=== PATIENT | female | born 1945 | race Caucasian/White ===

== ENCOUNTER 2024-12-11 12:12 | Emergency (ER) | payer OTHER, SELFPAY ==
[2024-12-11 13:50] VITALS: BP 143/70
--- NOTE | 2024-12-11 14:52 | ED.GENMED ---
History of Present Illness
General
Chief Complaint: Abdominal Symptoms
Source: patient
Exam Limitations: none
Time Seen by Provider: 12/11/24 13:58
Nursing documentation reviewed up to this point in time: agreed with
History of Present Illness
History of Present Illness:
Patient status post lower back surgery earlier this month @ [facility], i.e. laminectomy of sacrum, presents to ED secondary to inability of bowel movement despite having urge over the past 4 days. Patient spoke with surgeons office who recommended
patient try [id number] medications, which has not helped. Denies fever or chills. Denies nausea or vomiting. Denies previous history of constipation.
Past History
Past History
ED Past Medical History: COPD, GERD and Other (AAA being monitored)
Social History
Tobacco: Former smoker
Alcohol: Occasional
Drug: None
Personal: Partner
Living: with family
Family History
Family History: Other (no Significant)
Review of Systems
Review of Systems
Allergies reviewed?: Yes
All Other Systems: ROS reviewed and negative except as documented in HPI and ROS
Constitutional: Reports no symptoms; Denies fever
ABD/GI: Reports constipated; Denies abdominal pain or vomiting
Musculoskeletal: Reports no symptoms
Skin: Reports no symptoms
Neurological: Reports no symptoms
Phy Exam
Physical Exam
Physical Exam:
Physical Exam
General: no apparent distress, not acutely ill. afebrile
Head: nc/at. eomi
Neck: supple. normal range of motion.
Abdomen: normal bowel sounds. not tender.
Neuro: alert and oriented x 3. no focal neurological deficits
Skin: no rash
Psychiatric: well kept. interactive and cooperative
Extremities: no edema. no calf tenderness.
Course
Orders/Labs/Results
Orders:
Orders
12/11/24 12:17
Abdominal Series [CR Obstruct Series W/pa Chest] Urgent
Comment:
Reason For Exam: constipation
12/11/24 14:37
Mineral Oil Enema [Fleet Mineral Oil Enema] 133 ml .ROUTE .STK-MED ONE
12/11/24 15:09
Phosphate Enema [Fleet Phosphate Enema-Adult] 135 ml RECTAL NOW STA
Vital Signs
Initial and Last Documented VS:
Initial Vital Signs
Temp Pulse Resp Pulse Ox
97.6 F 94 17 99
12/11/24 12:13 12/11/24 12:13 12/11/24 12:13 12/11/24 12:13
Last Documented Vital Signs
Temp Pulse Resp BP Pulse Ox
97.6 F 85 16 143/70 98
12/11/24 12:13 12/11/24 13:50 12/11/24 14:00 12/11/24 13:50 12/11/24 13:50
MDM/Problems Addressed
MDM/Problems Addressed:
Rectal exam performed at bedside, accompanied by MICHOACANO Aguirre. Large amount of semihard stool removed manually. Patient provided with Fleet enema afterwards, with multiple successful bowel movements. Patient reports significant improvement in
symptoms. Patient feels comfortable going home at this time. Patient will follow-up with her primary care physician or surgeon for reevaluation.
*Critical Care Note
Total Time (30-74mins, 75-104mins- exclusive of procedures): Not Applicable
ED Attending Note
-
Portions of this chart may have been created with voice recognition software.� Occasional wrong word or��sound alike� substitutions may have occurred due to the inherent limitations of voice recognition software.
Discharge Plan
Departure
Patient Disposition: Home (Routine Discharge)
Date of Disposition: 12/11/24
Time of Disposition: 16:14
Patient with high blood pressure during this ER visit?: Yes
Condition: Good
Discharge Problem:
Constipation
Instructions: Constipation, Adult (DC)
Prescriptions:
No Action
olmesartan 20 mg Tablet
20 mg PO DAILY
fexofenadine 180 mg Tablet
180 mg PO DAILY
omeprazole 40 mg capsule,delayed release(DR/EC)
40 mg PO DAILY
hydrochlorothiazide 25 mg tablet
25 mg PO DAILYPRN PRN (Reason: extremely high blood pressure)
albuterol sulfate 90 mcg/actuation HFA aerosol inhaler
2 puff INHALATION R Q6HPRN PRN (Reason: sob)
ipratropium bromide 42 mcg (0.06 %) spray,non-aerosol
2 spray INTRANASAL BIDPRN PRN (Reason: allergic rhinitis)
metronidazole 0.75 % gel
1 applic TOPICAL BID
clobetasol-emollient 0.05 % cream
0.5 g TOPICAL BIDPRN PRN (Reason: vaginal itching/rash under breasts)
cranberry extract [Ellura] 200 mg Capsule
200 mg PO DAILY
Rhofade 1 % cream
1 applic TOPICAL DAILY
cyclobenzaprine 10 mg Tablet
10 mg PO BID Qty: 60 0RF
pregabalin 50 mg Capsule
50 mg PO DAILY Qty: 30 0RF
acetaminophen [Tylenol Extra Strength] 500 mg tablet
1,000 mg PO TIDPRN PRN (Reason: mild to moderate pain) Qty: 30 0RF
ibuprofen [Advil] 200 mg tablet
200 mg PO BIDPRN PRN (Reason: moderate pain) Qty: 20 0RF
pregabalin [Lyrica] 25 mg capsule
25 mg PO HSPRN PRN (Reason: Neck pain) Qty: 20 0RF
Referrals:
Felix Johnson MD [Family Provider] -
Activity Restrictions/Additional Instructions:
As discussed, please follow-up with your primary care physician and/or surgeon for continual evaluation and treatment.
Interventions
Interventions:
*Risk Screen - Suicide Last Done: 12/11/24 12:17
*General Assessment Last Done: 12/11/24 12:17
*Neglect/Abuse Screening Last Done: 12/11/24 12:17
*ED- Fall Risk Assessment Last Done: 12/11/24 13:50
*ED COVID-19 Vaccine History Last Done: 12/11/24 12:17
*Nursing Disposition Last Done: 12/11/24 16:19
QS-Cmhfjz-Ieieczbjib Assessment Last Done: 12/11/24 13:50
Discharge Date and Time
Discharge Date/Time: 12/11/24 16:34
Print Language: BAHAMIAN
[2024-12-11] MEDS: FLEET PHOSPHATE ENEMA-ADULT 135 ML RECTAL (15:42)
== END 2024-12-11 16:34 | disposition home or self-care (01) ==
LOC: EMR 12:12
PROVIDERS: EMERGENCY PHYSICIAN Emergency Medicine; FAMILY PHYSICIAN Family Medicine; OTHER PHYSICIAN Neurological Surgery
DX: K59.00 Constipation, unspecified (principal); J44.9 Chronic obstructive pulmonary disease, unspecified; Z87.891 Personal history of nicotine dependence; Z98.890 Other specified postprocedural states
CPT/HCPCS: 99283; 74022

== ENCOUNTER → 2025-02-18 06:47 | Outpatient (REF) | payer OTHER, SELFPAY | LOC: MRI 06:47 | PROVIDERS: ATTENDING PHYSICIAN Nurse Practitioner Family; FAMILY PHYSICIAN Family Medicine | DX: G96.191 Perineural cyst (principal); Z98.890 Other specified postprocedural states | CPT/HCPCS: 72195 ==

== ENCOUNTER 2025-02-26 20:11 | Inpatient (IN) | payer OTHER, SELFPAY ==
[2025-02-26] VITALS (24 sets, daily range): BP systolic 121–180; BP diastolic 64–95; BMI 28.5; BMI 28.8
[2025-02-26 01:48] LABS: Hematocrit 39.9 % (37.0-47.0); Hemoglobin 13.2 g/dL (12.0-16.0); Mean Corp Hgb Conc. 33.1 g/dL (33.0-37.0); Mean Corpuscular Volume 88.1 fL (81.0-99.0); Nucleated Red Blood Cells % 0 %; Platelet Count 395 10^3/uL (130-400); Red Cell Dist. Width 13.6 % (11.5-14.5)
[2025-02-26 01:58] LABS: ALT (SGPT) 15 U/L (0-35); AST (SGOT) 26 U/L (14-36); Albumin 4.8 g/dl (3.5-5.0); Alkaline Phosphatase 84 U/L (38-126); Blood Urea Nitrogen 13 mg/dl (7-17); Calcium 10.3 mg/dl (8.4-10.2); Carbon Dioxide 28 mmol/L (22-30); Chloride 102 mmol/L (98-107); Glucose 108 mg/dl (70-99); Lipase 352 U/L (23-300); Potassium 4.2 mmol/L (3.5-5.1); Sodium 139 mmol/L (135-145); Total Protein 8.7 g/dl (6.3-8.2); eGFR > 60.00
--- NOTE | 2025-02-26 04:07 | ED.GENMED ---
History of Present Illness
General
Chief Complaint: Abdominal Pain
Source: patient and spouse
Time Seen by Provider: 02/26/25 03:49
History of Present Illness
History of Present Illness:
79-year-old female presents emergency department with complaints of the gradual onset of upper abdominal pain that she notes around 11:30 PM while watching TV. Since that time, the pain has gotten progressively worse and is also noted in her mid
back. The pain does not radiate through to her back. She thought initially that it may be constipation, and states that her last bowel movement was yesterday. She did take senna and Colace earlier today and states that she typically suffers from
irregular bowel movements. She also questions whether or not she had spoiled cheese today as she did notice that there was an area of it that was green in color. There are no specific provoking or relieving factors to the pain. She denies urinary
symptoms, fever, chills, chest pain, shortness of breath, or other complaints.
Of note, patient had an MRI of her brain yesterday that was reportedly normal. She also had a pelvic MRI on the fifth in anticipation of follow-up with her neurosurgeon on Tuesday. It did demonstrate 2 postoperative collections but she has not
yet seen her doctor to help with these results.
Past History
Past History
ED Past Medical History: Arrthythmia, GERD, Hypercholesterolemia and Other (AAA)
ED Past Surgical History: Orthopedic and Other (Endovascular repair of AAA)
Social History
Tobacco: Former smoker
Alcohol: Occasional
Drug: None
Personal:
Living: with family
Family History
Family History: Other (no Significant)
Phy Exam
Physical Exam
Physical Exam:
GENERAL: Alert , in no apparent distress
EYE: pupils equal and reactive
NECK: Supple, no significant adenopathy.
ENT: o/p clr, mmm.
CARDIAC: Regular rate and rhythm .
LUNGS: Clear breath sounds bilaterally, no acute respiratory distress, no wheezes/rales/rhonchi
ABDOMEN: Soft, mild tenderness noted at right upper quadrant and left upper quadrant area, no r/g, no cvat
NEUROLOGICAL: Alert and oriented, no focal neuro deficits
SKIN: Warm and dry, skin intact.
MUSCULOSKELETAL: No edema, well perfused.
PSYCH: Normal and appropriate interaction.
Course
Orders/Labs/Results
Orders:
Orders
02/26/25 01:29
Complete Blood Count/With Diff Urgent
Comprehensive Metabolic Panel Urgent
Lipase Urgent
02/26/25 01:46
ECG [Electrocardiogram (*1)] Urgent
Reason for Study: Abdominal Pain
EKG- Treatment ONCE
02/26/25 04:07
Acetaminophen 1000MG/100Ml [Ofirmev] 1,000 mg in 100 ml IV ONCE
Acetaminophen IV Indication:: ED Narcotic Naive Pt-ONCE
02/26/25 04:20
CT Abd/pel Without Iv Or Oral Urgent
Comment:
Reason For Exam: abd/back pain/n/v
02/26/25 05:46
Aztreonam [Azactam] 1,000 mg IV NOW STA
02/26/25 06:09
Admit/Transfer Patient As Directed
Co-Sign Provider:
Level of Care: Observation services
Assign to:: Telemetry
Physician / Group: dr horner
Diagnosis: acute choleycystitis
Reason for Telemetry: Arrhythmia
Date to Stop Telemetry: 03/01/25
Time to Stop Telemetry: 11:00
02/26/25 06:10
Code Status As Directed
Resuscitation Status: Full Code
PRN Pain Medication Management As Directed
May give lesser potent ordered pain med per pt: Yes
preference::
Protocol:: Medication orders for pain may be administered in a
manner that supports deferring to patient preference
when the pt is:
- Requesting an ordered lesser potent pain medication.
Least to most potent pain medications are defined
as: acetaminophen < NSAID < tramadol < opioids
(morphine, oxycodone, hydromorphone).
- Requesting a lesser dose of the same medication IF
ORDERED.
- Requesting a less intrusive route of administration
if both routes are prescribed by the provider (PO <
IV).
02/26/25 06:18
Ketorolac [Toradol] 15 mg IV NOW STA
03/01/25 11:00
DC Protocol for Telemetry ONCE
Abnormal Lab Results
02/26/25
01:29
Absolute Monos (auto) 0.9 H 10^3/uL
(0.1-0.6)
Glucose 108 H mg/dl
(70-99)
Calcium 10.3 H mg/dl
(8.4-10.2)
Total Protein 8.7 H g/dl
(6.3-8.2)
Lipase 352 H U/L
(23-300)
02/26/25 01:29
02/26/25 01:29
Vital Signs
Initial and Last Documented VS:
Initial Vital Signs
Pulse Resp BP Pulse Ox
106 26 180/94 94
02/26/25 01:22 02/26/25 01:22 02/26/25 01:22 02/26/25 01:22
Last Documented Vital Signs
Pulse Resp BP Pulse Ox
130 27 161/95 94
02/26/25 04:30 02/26/25 04:30 02/26/25 04:00 02/26/25 04:15
*Pulse Oximetry
SaO2: 97
Oxygen Mode of Delivery: Room air
Patient hypoxic: no
*Critical Care Note
Total Time (30-74mins, 75-104mins- exclusive of procedures): Not Applicable
Update Note
Update Note:
Patient presents to the Emergency Department with ____abdominal and back pain
Number and Complexity of Problems Addressed at the Encounter
� Chronic conditions affecting care:
� Acute Exacerbation and/or Progression of Chronic Illness:
� Differential Diagnosis includes: But not limited to bowel obstruction, cholelithiasis, cholecystitis, AAA leak, pancreatitis, etc. etc.
Amount and/or Complexity of Data to be Reviewed and Analyzed
� I performed an independent evaluation of and my interpretation is:
EKG: Read by me, normal sinus rhythm, no acute ischemia
CT: vision, verbal report CT suspicious for acute cystitis.
Xrays:
Laboratory Studies: No leukocytosis, minimal lipase elevation very nonspecific, LFTs normal
Other:
� Review of other/old records reveals: MRI from reviewed 'Posterior laminectomy at S1-S2 with a postoperative fluid collection in the laminectomy bed that causes at least a moderate degree of secondary narrowing of the
sacral canal at the S2 level.'
Second postoperative fluid collection in the posterior subcutaneous fat along the course of the midline incision.
Recommend direct correlation with the patient's previous outside sacral MRI examinations.
� Clinical information was obtained by an independent historian: who is at bedside
� Prescriptions/Medications Considered but not given:
� Further testing considered but not performed:
Risk of Complications and/or Morbidity or Mortality of Patient Management
� Social determinants of health affecting care:
� Discussion with other providers (PCP, Hospitalists, Consultants, etc):
� Escalation of care including admission/observation vs risk of discharge considered: 5:26 AM pain well-controlled at this time. CT noted. Discussed with patient and regarding diagnosis and plan of care. Case discussed
with general surgery, Dr. Horner, he will take patient on his service. I will alert his admitting provider. In the meantime, I reviewed patient's lacie chart on 's phone to take a look at her allergies which include penicillin, Augmentin,
Levaquin, and ciprofloxacin. In addition, patient was admitted here for pneumonia and tolerated antibiotics at that time well as per . This guided the decision for patient to receive Azactam for her dose of antibiotics here.
ED Attending Note
-
Portions of this chart may have been created with voice recognition software.� Occasional wrong word or��sound alike� substitutions may have occurred due to the inherent limitations of voice recognition software.
Discharge Plan
Departure
Patient Disposition: Admit
Date of Disposition: 02/26/25
Time of Disposition: 05:31
Admit to: Med/Surg
Admit to doctor: julian
Presentation/result/management discussed w/ accepting MD/DO: julian
Condition: Good
Discharge Problem:
Acute cholecystitis
Prescriptions:
No Action
olmesartan 20 mg Tablet
20 mg PO DAILY
fexofenadine 180 mg Tablet
180 mg PO DAILY
omeprazole 40 mg capsule,delayed release(DR/EC)
40 mg PO DAILY
hydrochlorothiazide 25 mg tablet
25 mg PO DAILYPRN PRN (Reason: extremely high blood pressure)
albuterol sulfate 90 mcg/actuation HFA aerosol inhaler
2 puff INHALATION R Q6HPRN PRN (Reason: sob)
ipratropium bromide 42 mcg (0.06 %) spray,non-aerosol
2 spray INTRANASAL BIDPRN PRN (Reason: allergic rhinitis)
metronidazole 0.75 % gel
1 applic TOPICAL BID
clobetasol-emollient 0.05 % cream
0.5 g TOPICAL BIDPRN PRN (Reason: vaginal itching/rash under breasts)
cranberry extract [Ellura] 200 mg Capsule
200 mg PO DAILY
Rhofade 1 % cream
1 applic TOPICAL DAILY
cyclobenzaprine 10 mg Tablet
10 mg PO BID Qty: 60 0RF
pregabalin 50 mg Capsule
50 mg PO DAILY Qty: 30 0RF
acetaminophen [Tylenol Extra Strength] 500 mg tablet
1,000 mg PO TIDPRN PRN (Reason: mild to moderate pain) Qty: 30 0RF
ibuprofen [Advil] 200 mg tablet
200 mg PO BIDPRN PRN (Reason: moderate pain) Qty: 20 0RF
pregabalin [Lyrica] 25 mg capsule
25 mg PO HSPRN PRN (Reason: Neck pain) Qty: 20 0RF
Referrals:
Felix Johnson MD [Family Provider, Family Practice]
Interventions
Interventions:
*Risk Screen - Suicide Last Done: 02/26/25 01:22
*General Assessment Last Done: 02/26/25 03:53
*Neglect/Abuse Screening Last Done: 02/26/25 01:22
*ED- Fall Risk Assessment Last Done: 02/26/25 03:53
*ED COVID-19 Vaccine History Last Done: 02/26/25 03:53
FZ-Gpfcqa-Razxaepvad Assessment Last Done: 02/26/25 03:53
ED-Musculoskeletal Assessment Last Done: 02/26/25 03:53
Discharge Date and Time
Print Language: YAKUT
[2025-02-26] MEDS: OFIRMEV 100 IV (04:25)
[2025-02-26] MEDS: AZACTAM 1000 MG IV ×3 (06:02→22:23)
--- NOTE | 2025-02-26 06:21 | HPS.HSE ---
Family Physician
-
Family Physician: Felix Johnson
Chief Complaint
-
upper abd pain
History of Present Illness
79-year-old female presents emergency department with complaints of the gradual onset of upper abdominal pain that she notes around 11:30 PM while watching TV. Since that time, the pain has gotten progressively worse and is also noted in her mid
back. The pain does not radiate through to her back. She thought initially that it may be constipation, and states that her last bowel movement was yesterday. She did take senna and Colace earlier today and states that she typically suffers from
irregular bowel movements. She also questions whether or not she had spoiled cheese today as she did notice that there was an area of it that was green in color. There are no specific provoking or relieving factors to the pain. She denies urinary
symptoms, fever, chills, chest pain, shortness of breath, or other complaints.
Of note, patient had an MRI of her brain yesterday that was reportedly normal. She also had a pelvic MRI on the fifth in anticipation of follow-up with her neurosurgeon on Tuesday. It did demonstrate 2 postoperative collections but she has not
yet seen her doctor to help with these results.
ED treatments:
Ct abd: dilated GB with mass effect intra abd wall representing acute cholecystitis.
Labs unremarkable except lipase 352
Pain improved s/p ofirmev.
Medical History
Past Medical History
Past Medical History: Reports Other
Additional Past Medical History:
Primary hypertension-now controlled
Osteoarthritis
COPD
Chronic hypoxic respiratory insufficiency nocturnal chronic 2 L at HS (started after aspiration pneumonia dx after colonoscopy 2011)
Morbid obesity due to excess calories
Lung nodules
AAA-
History of tobacco abuse
GERD
History of skin lesions
perineural cyst
hyperlipidemia
cystitis
Past Surgical History: Reports Other
Additional Past Surgical History:
Skin lesions removal
perineural cyst surgery
cervical lami
Lami s1s2
AAA stenting 2023
breast reduction
rhinoplasty
tonsils
Social History
Tobacco: Former Smoker (Smoked 1/1.5 pack/day for greater than 30 years)
Alcohol: None (1-2 glasses of wine daily)
Drug: None
Personal:
Living: With Family
Employment: Not Employed
Family History
Family History: Not pertinent
Allergies / Home Medications
Allergies reflects when Allergies were last updated in [facility].
Home Medications with original date entered in [facility]
Allergy/Medication List:
Allergies
Allergy/AdvReac Type Severity Reaction Status Date / Time
adhesive tape Allergy Vomiting Verified 06/05/22 13:14
amoxicillin [From Augmentin] Allergy Hives Verified 06/05/22 13:14
ciprofloxacin [From Cipro] Allergy Unknown Verified 06/05/22 13:14
clavulanic acid Allergy Hives Verified 06/05/22 13:14
[From Augmentin]
diphenhydramine Allergy Unknown Verified 06/05/22 13:14
[From Benadryl]
Fish Containing Products Allergy Unknown Verified 06/05/22 13:14
iodine [Iodine] Allergy Swelling Verified 06/05/22 13:14
levofloxacin [From Levaquin] Allergy Rash Verified 06/05/22 13:14
Penicillins Allergy Hives Verified 06/05/22 13:14
ranitidine [From Zantac] Allergy Unknown Verified 06/05/22 13:14
shellfish derived Allergy Unknown Verified 06/05/22 13:14
Tetanus Vaccines and Toxoid Allergy Unknown Verified 06/05/22 13:14
[Tetanus]
tiotropium Allergy Unknown Verified 06/05/22 13:14
[From Spiriva with
HandiHaler]
codeine [Codeine] AdvReac Unknown Verified 06/05/22 13:14
epinephrine AdvReac Sensitivity: Verified 06/05/22 13:15
rapid HR
and needed
02 at
Dentist
Home Medications
omeprazole 40mg po daily
pravastatin -dose unknown
Review of Systems
-
History Source: Patient and Family
A 12 point ROS was completed and negative except as noted: Yes
Constitutional: Reports No Symptoms
EENT: Reports No Symptoms
Respiratory: Reports No Symptoms
Cardiac: Reports No Symptoms
Abdomen/GI: Reports Abdominal Pain (epigastric to RUQ), Nausea, Diarrhea (alternates normally with diarrhea and constipation at home) and Constipated
: Reports Incontinence
Musculoskeletal: Reports No Symptoms
Skin: Reports No Symptoms
Neurological: Reports No Symptoms
Endocrine: Reports No Symptoms
Hematologic/Lymphatic: Reports No Symptoms
Psych: Reports No Symptoms
Physical Exam
Vital Signs
Vital Signs
Pulse Resp BP Pulse Ox
130 27 161/95 94
02/26/25 04:30 02/26/25 04:30 02/26/25 04:00 02/26/25 04:15
Physical Exam
General: Well Developed, Well Nourished, No Apparent Distress and Pain
HEENT: NormoCephalic, Anicteric, Moist mucous membranes and Atraumatic
Respiratory: Clear and Non Labored Respirations
Cardiac: S1/S2 and Regular Rhythm (HR 70s)
Breast: Deferred by me
GI: Soft, Non Distended, Normal Bowel Sounds and Tender (tender to palpation in epigastric region and RUQ. ); No Non Tender
Rectal: Deferred by Provider
Genito-urinary: Deferred by me
Musculoskeletal: No Clubbing and No Cyanosis
Skin: Warm
Neuro: Awake, Alert, Oriented, AO x 3 and No Motor Deficits
Hematologic/Lymphatic: No Lymphadenopathy
Psych: Calm
Laboratory Results
-
02/26/25 01:29
02/26/25:
Laboratory Results
Total Bilirubin 0.6 mg/dl (0.2-1.3) 02/26/25:
AST 26 U/L (14-36) 02/26/25
ALT 15 U/L (0-35) 02/26/25:
Alkaline Phosphatase 84 U/L (38-126) 02/26/25:
Lipase 352 U/L (23-300) H 02/26/25:
Data Reviewed
-
CT Scan: Report Reviewed by me and Discussed with Physician
Lab Data: Labs Reviewed by me
Impression/Plan
-
IMPRESSION:
Acute cholecystitis
PLAN:
Admit to service of Dr Horner
Tele obs
#acute cholecystitis
-Ct abd: dilated GB with mass effect intra abd wall representing acute cholecystitis.
Labs unremarkable except lipase 352
-NPO x meds
-IVF: nss
-Pain control: pt very sensitive to many different pain medication in past. Last admit in 2022 tramadol and dilaudid caused hallucinations. Her POA and friend Trey will attempt to look on her portal to see what she received after last surgery in
2023. For now we will try tylenol and toradol.
- Cont azactam iv (pt with many abx allergies and sensitivities)
#HLD
-cont pravastatin once dose known
#GERD
-cont omeprazole or equivilant
DVT proph: scd
Full Code 'do everything to keep me alive'
[2025-02-26] MEDS: TORADOL 15 MG IV (06:43)
[2025-02-26] MEDS: NSS 1000 IV ×2 (07:38→19:37)
[2025-02-26] MEDS: PROTONIX PO (09:04)
--- NOTE | 2025-02-26 09:12 | CON.GS ---
Addendum entered and electronically signed by Jason Nicholas MD 02/26/25 10:28:
Patient seen and examined.
Patient is a 79 yo F with a PMH notable for obesity, GERD, HLD, COPD (on nocturnal 2 L home O2), RAJ, AAA s/p EVAR, s/p breast reduction, s/p rhinoplasty, and chronic back pain s/p cervical laminectomy and recently lumbar Tarlov cyst excision done
at [facility] in 11/2024. Ms. Glover presents with 24 hours of RUQ abdominal pain radiating to her back. Symptoms began somewhat acutely yesterday evening after a meal consisted of chicken and Prydeinig food. She did eat some cheese which was
questionably spoiled. Associated nausea and vomiting while waiting in the ER. She denies any jaundice, pale stools, or tea colored urine. She has more chronic issues related to constipation for which she takes intermittent stool softeners. She
does report prior history of crampy abdominal pain with this taking the stool softeners. She denies any clear prior episodes of epigastric or RUQ abdominal pain associated with oral intake. No fevers or chills. Currently she states that her pain
is improved, but still present.
Gen: NAD
Abd: soft, tender to palpation in RUQ, positive Leyva's sign, ND, non-peritoneal
Labs and imaging reviewed
Patient is a 79 yo F p/w acute calculus cholecystitis
The natural history and pathophysiology of cholecystitis was discussed. Anatomy was reviewed. Workup including labs, ultrasound, and CT scan were reviewed. Options for management were reviewed. Given her persistent discomfort recommend
cholecystectomy.
Plan for laparoscopic cholecystectomy with possible cholangiogram. The procedure itself, as well as the risks, benefits, and alternatives was discussed. Specifically, we discussed the risks of bleeding, infection, injury to surrounding structures
(bowel, bile ducts), CBD injury, need for procedure, and cardiopulmonary complications. Typical postprocedural recovery including pain management and the 10 to 20% risks of fluctuations in GI function were discussed. All questions answered.
Consent signed.
-- Lap srinivas with IOC
-- NPO, IVF
-- Abx: Aztreonam
Original Note:
Consultation
-
Performing Provider: Jason Luis MD
Medical History
-
Chief Complaint: right side abdominal pain
History of Present Illness:
79 yr old Female with past k/h/o cervical lami, AAA with stent, perineural cyst surgery, lung nodules, Hypertension arrived to the ER today with abdominal pain which was sudden in onset at last night around 11.30pm when the pt was watching TV at
living room. Gradually increased and started to radiate to the lower abdomen and to her back. Patient experiences pain after having dinner includes chicken and Prydeinig food and some cheese which she thinks it might be probably spoiled, and pain not
reduced (pt didnt take any pain medication). Pain was associated with nausea and she had 2 episodes of vomiting after arriving to ER. Pain not associated with diarrhea, fever, dysuria, chills, chest pain, palpitation, shortness of breath, pale
stools, jaundice.
Pt currently now she has upper right side pain, radiating towards her right shoulder.
Past Medical History
Past Medical History: COPD (COPD Chronic hypoxic respiratory insufficiency nocturnal chronic 2 L at HS (started after aspiration pneumonia dx after colonoscopy 2011)), HTN (Primary hypertension-now controlled) and Other ( Osteoarthritis , Morbid
obesity due to excess calories , Lung nodules AAA- History of tobacco abuse. )
Past Surgical History: Other (perineural cyst surgery on November 2024, cervical lami Lami s1s2, AAA stenting 2023, breast reduction, rhinoplasty)
Social History
Tobacco: Former Smoker
Alcohol: None
Personal:
Living: With Family
Employment: Not Employed
Family History
Family History: Reviewed & Not Pertinent
Allergies / Home Medications
Allergy/AdvReac Type Severity Reaction Status Date / Time
hydromorphone (From Dilaudid) Allergy Mild hallucinations Verified 02/26/25 07:33
-admit 2022
adhesive tape Allergy Vomiting Verified 02/26/25 07:33
amoxicillin (From Augmentin) Allergy Hives Verified 02/26/25 07:33
ciprofloxacin (From Cipro) Allergy Unknown Verified 02/26/25 07:33
clavulanic acid (From Allergy Hives Verified 02/26/25 07:33
Augmentin)
diphenhydramine (From Allergy heart Verified 02/26/25 07:33
Benadryl) skips beats
Fish Containing Products Allergy Unknown Verified 02/26/25 07:33
iodine (Iodine) Allergy Swelling Verified 02/26/25 07:33
levofloxacin (From Levaquin) Allergy Rash Verified 02/26/25 07:33
Penicillins Allergy Hives Verified 02/26/25 07:33
ranitidine (From Zantac) Allergy Unknown Verified 02/26/25 07:33
shellfish derived Allergy Unknown Verified 02/26/25 07:33
Tetanus Vaccines and Toxoid Allergy Unknown Verified 02/26/25 07:33
(Tetanus)
tiotropium (From Spiriva Allergy Unknown Verified 02/26/25 07:33
with HandiHaler)
codeine (Codeine) AdvReac 'fainting' Verified 02/26/25 07:33
epinephrine AdvReac Sensitivity: Verified 02/26/25 07:33
rapid HR
and needed
02 at
Dentist
tramadol AdvReac hallucinations Verified 02/26/25 07:33
admit 2022
�Medication �Instructions �Recorded �Confirmed �Type
Lactobac no.2-Bifidobac no.1-S. 1 cap PO DAILY 02/26/25 02/26/25 History
thermo 112.5 billion cell capsule
(Visbiome)
omeprazole 20 mg tablet,delayed 20 mg PO DAILY 02/26/25 02/26/25 History
release
pravastatin 10 mg tablet 10 mg PO DAILY 02/26/25 02/26/25 History
vitamin B complex 1 tab PO DAILY 02/26/25 02/26/25 History
Review of Systems
-
History Source: Patient
A 10 point review of systems was completed, and was negative except as per HPI.
Physical Exam
Vital Signs
Pulse Resp BP Pulse Ox
76 19 139/66 93
02/26/25 08:00 02/26/25 08:00 02/26/25 08:00 02/26/25 08:00
02/25/25 02/26/25 02/27/25
06:59 06:59 06:59
Actual Weight 77.6 kg
Body Mass Index (BMI) 28.5
Lab Results
02/26/25:
02/26/25:
WBC 9.6 10^3/uL (4.8-10.8) 02/26/25:
Hgb 13.2 g/dL (12.0-16.0) 02/26/25:
Hct 39.9 % (37.0-47.0) 02/26/25:
Plt Count 395 10^3/uL (130-400) 02/26/25:
Abs Immat Gran (auto) 0.0 10^3/uL (0-0.05) 02/26/25:29
Neutrophils % 52.5 % (42.2-75.2) 02/26/25:
Physical Exam
General: Well Developed
HEENT: Moist Mucous Membranes
Respiratory: Clear
Cardiac: S1/S2 and Regular Rhythm
GI: Non Distended, Tender (right side upper quadrant. ) and Other (non rigid, no guarding, hypoechoic bowel sounds. )
Genito-urinary: Clear Urine
Skin: Warm
Neuro: AO x 3
Hematologic/Lymphatic: No Lymphadenopathy
Psych: Calm
Assessment / Plan
-
79-yr F with k/h/o cervical lami, AAA with stent (2023), perineural cyst surgery( november 2024), lung nodules, Hypertension, COPD (2l of home oxygen)
#Abdominal pain secondary to acute cholecystitis:
Afebrile, BP- 148/62, RR- 19.
WBC- 9.6 (N), Lipase= 352 (H)
EKG: NORMAL SINUS RHYTHM WITH SINUS ARRHYTHMIA, LEFT ANTERIOR FASCICULAR BLOCK, MODERATE VOLTAGE CRITERIA FOR LVH, MAY BE NORMAL VARIANT ( R in aVL , [place] product )
CT Abdomen/Pelvis without iv/oral contrast on 02/26/25:
Possible gallbladder sludge versus tiny calculi. Soft tissue stranding in the farzad hepatis. Moderate gallbladder distention. In the proper clinical setting, the possibility of mild/low grade cholecystitis may be considered. No apparent bile duct
dilatation.
Small sliding hiatal hernia.
Status post endovascular stent graft repair of saccular abdominal aortic aneurysm; minimal decrease in size of qawalangin aneurysm sac.
Postoperative sacral laminectomy changes.
MRI SPINE:
Posterior laminectomy at S1-S2 with a postoperative fluid collection in the laminectomy bed that causes at least a moderate degree of secondary narrowing of the sacral canal at the S2 level.
Second postoperative fluid collection in the posterior subcutaneous fat along the course of the midline incision.
-NPO with medications.
-IVF:NSS
-Pain control: pt very sensitive to many different pain medication in past, Tylenol and Toradol.
- Cont aztreonam iv (pt with many abx allergies and sensitivities)
- Plan for laparoscopic cholecystectomy.
--- NOTE | 2025-02-26 09:45 | CM ---
CM reviewed chart and met with pt bedside in ED. Pt is currently staying with her SO Trey in [place]. Pt owns a home in [facility] but has been staying with Trey for some time.
Independent in ADLs, personal care and ambulation at baseline. Has RW and transport chair, pt states she rarely uses walker, uses WC when she leaves the home. Trey's home is split level, no IZZY from garage, 2 different sets of 4 steps to get around
inside the home. Pt has adjustable bed and full BA on same level. Pt has O2, wears 2 L NC at night, supplied by [employer].
No hx VN or SNF.
PCP: Felix Johnson in [place], [place]
Pharmacy: [facility] [place]
FERNANDEZ reviewed and signed by pt. FERNANDEZ plus copy of AD given to UC to scan in.
CM will continue to follow for all discharge planning needs.
--- NOTE | 2025-02-26 10:19 | W.SUR.PREOP ---
Pre-Operative Surgical Note
-
I have examined this patient prior to the performance of the scheduled procedure.
The patient's condition is unchanged from the time of the current History and
Physical and the patient is able to undergo the scheduled procedure.
--- NOTE | 2025-02-26 17:36 | W.IMMPOSTOP ---
Surgical Immed Post Op Note
-
Primary Surgeon: Cristopher
Assisting Surgeon: CARMEN Castro
Pre-op Diagnosis: Acute cholecystitis
Post-op Diagnosis: Acute gangrenous cholecystitis
Procedure Performed: Laparoscopic cholecystectomy with cholangiogram
Anesthesia Type: General
Specimen / Cultures:
1. Gallbladder
Estimated Blood Loss: 3 cc
Complications: None
Operative Findings:
1. Severely inflamed, gangrenous GB with patchy necrosis and likely perforation with bilious ascites within RUQ
2. Critical view of safety, IOC negative
3. Artery taken with clips, duct with clips and 0 PDS Endoloop
Plan:
-- Abx for 4 days post-op
--- NOTE | 2025-02-26 20:30 | PTCARENOTE ---
Pt transported from PACU to 3W via a bed. Pt post lap srinivas w/ 5 abdominal sites present and sealed with adhesive glue. Pt AAOX3, able to make needs known, 2L of O2, vitals stable. Oriented to room w/ call fisher within reach. Pleasant and
cooperative.
[2025-02-27 03:48] VITALS: BP 117/69
[2025-02-27] MEDS: TYLENOL 650 MG PO (06:19)
[2025-02-27] MEDS: AZACTAM 1000 MG IV ×2 (06:19→14:23)
[2025-02-27] MEDS: STERILE WATER FOR INJECTION 10 ML IV ×2 (06:19→14:24)
[2025-02-27 07:10] VITALS: BP 121/61
--- NOTE | 2025-02-27 07:16 | W.PN.GS2 ---
Addendum entered and electronically signed by Martinez Horner MD 02/27/25 12:08:
I was physically present and personally performed the solis portions of the surgical evaluation and/or procedure with the resident. I discussed the findings, reviewed the resident�s note, and confirmed the medical decision-making. I provided direct
supervision as required and agree with the assessment and plan as documented with the following additions/corrections:
Doing well post-op. Ambulating, voiding, shade PO without issue. Pain controlled with tylenol. Abd exam with approp ttp, incisions cdi with glue. OK for DC home with 4 days PO abx. Cefuroxime/flagyl prescribed.
Original Note:
Today's Communication / Plan
-
continue the iv antibiotics.
Assessment / Plan
-
79-yr F with k/h/o cervical lami, AAA with stent (2023), perineural cyst surgery( november 2024), lung nodules, Hypertension, COPD (2l of home oxygen) s/p laparoscopic cholecystectomy POD- 1
#S/p laparoscopic cholecystectomy POD 1 for acute cholecystitis:
Afebrile, BP- 127/61, RR- 19, Tmax- 98.8
WBC- 9.6 (N), Lipase= 352 (H)
EKG: NORMAL SINUS RHYTHM WITH SINUS ARRHYTHMIA, LEFT ANTERIOR FASCICULAR BLOCK, MODERATE VOLTAGE CRITERIA FOR LVH, MAY BE NORMAL VARIANT ( R in aVL , [place] product)
CT Abdomen/Pelvis without iv/oral contrast on 02/26/25:
Possible gallbladder sludge versus tiny calculi. Soft tissue stranding in the farzad hepatis. Moderate gallbladder distention. In the proper clinical setting, the possibility of mild/low grade cholecystitis may be considered. No apparent bile duct
dilatation.
-Operative findin. Severely inflamed, gangrenous gallbladder with patchy necrosis and likely perforation with bilious ascites within the right upper quadrant.
- Advanced to the soft diet, pt s tolerating the food.
-Pain control: pt very sensitive to many different pain medication in past, currently the pt is receiving Tylenol and Toradol.
- Continue aztreonam iv DAY 2. (continue for 4 more days) (NOTE: pt with many abx allergies and sensitivities).
Subjective Data
-
Date of Service: February 27, 2025
Patient does concern for intermittent abdominal pain when she has an intermittent cough, with pain scale of 3/10 in nature. She passed flatus, ambulating around the room. Abdominal pain is controlled with Tylenol.
Objective Data
-
Intake and Output
02/26/25 02/27/25 02/28/25
06:59 06:59 06:59
Other:
Number of approximated LARGE 1
amounts of urine
Vital Signs
Temp Pulse Resp BP Pulse Ox
98.2 F 72 16 117/69 94
02/27/25 03:48 02/27/25 03:48 02/27/25 03:48 02/27/25 03:48 02/27/25 03:48
Lab Results
02/26/25 01:29
02/26/25 01:29
Calcium 10.3 mg/dl (8.4-10.2) H 02/26/25 01:29
Total Bilirubin 0.6 mg/dl (0.2-1.3) 02/26/25 01:29
AST 26 U/L (14-36) 02/26/25 01:29
ALT 15 U/L (0-35) 02/26/25 01:29
Alkaline Phosphatase 84 U/L (38-126) 02/26/25 01:29
Total Protein 8.7 g/dl (6.3-8.2) H 02/26/25 01:29
Albumin 4.8 g/dl (3.5-5.0) 02/26/25 01:29
Physical Exam
-
General: Well Developed
HEENT: Moist Mucous Membranes
Respiratory: Clear
Cardiac: S1/S2 and Regular Rhythm
GI: Non Distended, non tender, non rigid, no guarding, hypoechoic bowel sounds.
Cholecystectomy Incision wound is clear, no discharge, non tender.
Genito-urinary: Clear Urine
Skin: Warm
Neuro: AO x 3
Hematologic/Lymphatic: No Lymphadenopathy
Psych: Calm
Patient has a salazar catheter: No
Patient has a central line: No
[2025-02-27] MEDS: PROTONIX 40 MG PO (09:15)
[2025-02-27] MEDS: NSS 1000 IV (09:17)
[2025-02-27] MEDS: PRAVACHOL 10 MG PO (09:36)
[2025-02-27 11:00] VITALS: BP 127/61
--- NOTE | 2025-02-27 13:02 | W.DS.TRANS ---
DC Summary - Finance Specialist
-
Discharge Instructions:
Discharge Diagnosis/Procedures Laparoscopic cholecystectomy with cholangiogram
Diet Low Fat
Activity No strenuous activity
Additional Activity No heavy lifting (>20 lbs) or strenuous
activities for 2 to 3 weeks postoperatively
Driving Restrictions No driving if to start taking narcotics
Bathing Restrictions OK to Shower
Wound Care Keep incisions clean and dry. Glue will flake
off in 2 to 3 weeks. Stitches will dissolve.
Use ice to the abdomen to reduce any bruising or
swelling.
Instructions:
Stand-Alone Forms:
Changes to Home Medications: No
Discharge Medications:
DC Medications w/original date entered in [facility]
Lactobac no.2-Bifidobac no.1-S. thermo 112.5 billion cell capsule (Visbiome) 1 cap PO DAILY 02/26/25
omeprazole 20 mg tablet,delayed release 20 mg PO DAILY 02/26/25
pravastatin 10 mg tablet 10 mg PO DAILY 02/26/25
vitamin B complex 1 tab PO DAILY 02/26/25
cefuroxime axetil 500 mg tablet 500 mg PO Q12H #8 tabs 02/27/25
metronidazole 500 mg tablet 500 mg PO Q8H 4 days #12 tabs 02/27/25
Home Medication Changes
Pending Results: No
[2025-02-27] MEDS: TORADOL 10 MG IV (14:42)
[2025-02-27 15:10] VITALS: BP 133/59
--- NOTE | 2025-02-27 16:02 | CM ---
Met with patient and signifcant other [place] - Patient discharged
IMM explained & signed. Verbalized understanding
Detailed Notice of Discharge to be given to patient
Patient/SO states they wish to appeal the discharge
Patient states they will call [employer] # on IMM
Will fax clinicals to [employer] - appeal process
PLAN: Await [employer] appeal determination
--- NOTE | 2025-02-27 17:32 | CM ---
Received call from Oliva at [facility], notifying us of patient appealing to [facility], Case #[id number], EMR- [id number]. They will send fax that needs to accompany the clinical information that they are requesting. Requested clinical information needs
to be sent to [facility] by 12 noon tomorrow, 02/28/2025. Update to .
--- NOTE | 2025-02-27 17:42 | W.PN.UPDATE ---
Update Note
Progress Note Update
Pt seen and evaluated at bedside. Remains without distress, abd exam unchanged. Pt and partner have concerns about discharge. Given her many antibiotic allergies, they are concerned the abx prescribed for use upon DC could potentially cause a
reaction. I advised them that these abx are not included in her known list of allergies, however they remain concerned. They were unable to recall which abx she has tolerated in the past. Together we accessed her [place] chart to investigate which
antibiotics she has tolerated previously. We discovered that she has taken bactrim many times and has no allergic reaction to it. Despite this, the patient and partner both feel uncomfortable with DC tonight. We discussed starting the bactrim while
she is here so she can be monitored for reaction and they were agreeable to this plan. Will start PO bactrim and monitor her overnight to ensure no reaction. If no further issues plan for DC in the am with PO bactrim.
[2025-02-27] MEDS: LOVENOX 40 MG SC (18:34)
[2025-02-27 19:00] VITALS: BP 137/58
--- NOTE | 2025-02-28 09:51 | CM ---
Patient withdrew their appeal
Andrew nolasco [facility] called
Patient discharged home last night per nursing after meeting with Dr. Horner
Significant other transported
[2025-02-28 19:06] LABS: Hepatitis C Antibody Negative (Negative)
== END 2025-02-27 20:15 | disposition home or self-care (01) | DRG 418 ==
LOC: 3 WEST ACU 20:11
PROVIDERS: ADMITTING PHYSICIAN Surgery; EMERGENCY PHYSICIAN Emergency Medicine; FAMILY PHYSICIAN Family Medicine; OTHER PHYSICIAN Surgery
PROC: 0FT44ZZ Resection of Gallbladder, Percutaneous Endoscopic Approach (ICD-10-PCS; 2025-02-26)
PROC: BF502Z0 Other Imaging of Bile Ducts using Fluorescing Agent, Intraoperative (ICD-10-PCS; 2025-02-26)
DX: K81.0 Acute cholecystitis (principal); K82.A2 Perforation of gallbladder in cholecystitis; R18.8 Other ascites; K82.A1 Gangrene of gallbladder in cholecystitis; Z86.79 Personal history of other diseases of the circulatory system; J44.9 Chronic obstructive pulmonary disease, unspecified; I10 Essential (primary) hypertension; R09.02 Hypoxemia; E66.09 Other obesity due to excess calories; Z68.28 Body mass index [BMI] 28.0-28.9, adult; E78.00 Pure hypercholesterolemia, unspecified; K21.9 Gastro-esophageal reflux disease without esophagitis; Z79.899 Other long term (current) drug therapy; Z87.891 Personal history of nicotine dependence; Z88.0 Allergy status to penicillin; Z88.1 Allergy status to other antibiotic agents; Z91.041 Radiographic dye allergy status; G89.29 Other chronic pain; R06.89 Other abnormalities of breathing
CPT/HCPCS: 74176; 74300; 76000; 76705; 80053; 83690; 85025; 86803; 88304; 93005; 96374; 96375; 99285; A4300

== ENCOUNTER → 2025-03-05 08:03 | Outpatient (REF) | payer OTHER, SELFPAY | LOC: WDC 08:03 | PROVIDERS: ATTENDING PHYSICIAN Obstetrics & Gynecology Gynecology; FAMILY PHYSICIAN Family Medicine | DX: Z12.31 Encounter for screening mammogram for malignant neoplasm of breast (principal) | CPT/HCPCS: 77063; 77067 ==